=== PATIENT | male | born 1955 | race Caucasian/White ===

== ENCOUNTER → 2016-09-19 | Outpatient (CLI) | payer OTHER ==
[2016-09-19 15:33] LABS: BASOPHILS # (AUTO) 0.09 10*3/UL; EOSINOPHILS # (AUTO) 0.14 10*3/UL; EOSINOPHILS % (AUTO) 1.6 % (0-8); HEMOGLOBIN 16.8 g/dL (14.0-18.0); LYMPHOCYTES # (AUTO) 2.15 10*3/uL; MEAN CORPUSCULAR HEMOGLOBIN 30.4 PG (27-31); MEAN CORPUSCULAR HGB CONC 33.6 g/dL (33-37); MEAN CORPUSCULAR VOLUME 90.6 FL (80-90); MEAN PLATELET VOLUME 10.5 FL (7.4-12.2); MONOCYTES # (AUTO) 0.56 10*3/UL (0.3-0.8); MONOCYTES % (AUTO) 6.3 % (5-15); NEUTROPHILS # (AUTO) 5.89 10*3/UL; NEUTROPHILS % (AUTO) 66.6 % (50-80); RED BLOOD COUNT 5.52 10^6/uL (4.70-6.10)
[2016-09-19 15:44] LABS: BLOOD UREA NITROGEN 13 mg/dL (7-22); BUN/CREATININE RATIO 14.44 (6-20); CALCIUM 9.2 mg/dL (8.7-10.7); EST GLOMERULAR FILTRATION > 60 (>60 ml/min/1.73m(2)); SERUM ALBUMIN 4.1 g/dL (3.5-4.8)
[2016-09-19 15:46] LABS: PLATELET MORPHOLOGY COMMENT NORMAL MORPHOLOGY (NORM); RBC MORPHOLOGY COMMENT NORMAL MORPHOLOGY (NORM); WBC MORPHOLOGY COMMENT NORMAL MORPHOLOGY (NORM)
[2016-09-19 15:47] LABS: BILIRUBIN,URINE NEGATIVE (NEG); GLUCOSE, URINE (UA) 100 mg/dL (NEG); NITRATE,URINE POSITIVE (NEG); OCCULT BLOOD,URINE NEGATIVE (NEG); PROTEIN,URINE 30 mg/dl (NEG)
[2016-09-19 16:11] LABS: CLARITY,URINE CLEAR (CLEAR)
[2016-09-19 16:12] LABS: BACTERIA,URINE RARE; COLOR,URINE ORANGE; RBC,URINE 0-1 /hpf; URINE SAMPLE TYPE VOID; WBC,URINE 0-1
== END ==
LOC: MOB LAB 14:33
PROVIDERS: ATTEND Family Medicine
DX: Z01.812 Encounter for preprocedural laboratory examination (principal)
CPT/HCPCS: 36415; 80053; 81001; 85025; 86850; 86900; 86901; 87088; 87641

== ENCOUNTER → 2016-09-28 | Outpatient (CLI) | payer SELFPAY ==
[2016-09-28 13:38] LABS: BILIRUBIN,URINE NEGATIVE (NEG); COLOR,URINE YELLOW; GLUCOSE, URINE (UA) NEGATIVE (NEG); NITRATE,URINE NEGATIVE (NEG); PROTEIN,URINE NEGATIVE (NEG); UROBILINOGEN,URINE 0.2 EU/dL (0.2)
[2016-09-28 13:44] LABS: CLARITY,URINE CLEAR (CLEAR); OCCULT BLOOD,URINE TRACE (NEG)
[2016-09-28 13:47] LABS: URINE SAMPLE TYPE VOIDED SPECIMEN; WBC,URINE 0
== END ==
LOC: MOB LAB 09:47
PROVIDERS: ATTEND Orthopaedic Surgery
DX: Z01.812 Encounter for preprocedural laboratory examination (principal); M25.552 Pain in left hip
CPT/HCPCS: 81001; 81003

== ENCOUNTER 2016-10-01 12:38 | Emergency (ER) | payer SELFPAY ==
[2016-10-01 12:52] VITALS: RESP 18; TEMP 97.4
[2016-10-01] MEDS ORDERED: Sodium Chloride 0.9% 1,000 ML PRIMARY IV ONE (12:55)
--- NOTE | 2016-10-01 12:59 | PDOC ---
Male Genitourinary Problem HPI - General Chief Complaint: Genitourinary Complaint Stated Complaint: R FLANK PAIN/DYSURIA/HEMATURIA X3 DAYS Date Seen by Provider: 10/01/16 Time Seen by Provider: 12:54 Source: POSITIVE: Patient Exam Limitations: POSITIVE: No limitations Nurse's Notes Reviewed & Considered: Yes - History of Present Illness Initial Comments: Patient comes in today passing blood clots in his urine. Patient comes in today with complaints of hematuria this been escalating over the last 3 days. He had a similar episode one year ago, was treated with antibiotics and had no return of symptoms until this weekend. He denies any headache, chest pain, shortness of breath, nausea vomiting or diarrhea, abdominal pain, no rashes. He does have right-sided CVA pain. Body Location Affected: REPORTS: Abdomen Timing: REPORTS: Abrupt Duration: >24 hours Severity: Severe Quality: REPORTS: Burning Associated Symptoms: REPORTS: Problems Urinating, Burning, Blood in Urine, Flank Pain (Right-sided flank pain) Similar Symptoms Previously: Yes Recent Care Received: REPORTS: Denies Any Prior Injuries Related to Current Complaint?: No - Patient Home Medications Home Medications: Home Medications Ibuprofen [Advil] 200 mg PO PRN PRN 03/04/12 Pumpkin Seed Extract/Soy Germ [Azo Bladder Control Capsule] 1 tab PO PRN PRN - Patient Allergies Allergies/Adverse Reactions: Allergies Allergy/AdvReac Type Severity Reaction Status Date / Time No Known Allergies Allergy Verified 10/01/16 12:43 Past Medical History - heen HEENT History: Dentures/Partials Cardiovascular History: Denies History Respiratory History: Denies History Gastrointestinal History: Other (please comment) Additional Gastrointestinal History: OCCASIONAL HEARTBURN, BLEEDING ULCER Genitourinary History: Denies History Endocrine History: Denies History Musculoskeletal History: Arthritis Prosthesis or Implant: Yes (R LEG) Neurological History: Denies History Blood Disorders: Denies History Psychiatric History: Denies History Male Reproductive History: Denies History Cancer History: Denies History In Past Year Been Physically Harmed or Verbally Threatened: No History of MDRO: No Tobacco Use: Current Every Day Smoker Alcohol Use: None Substance Use Type: None Previous Surgical History: Yes Type / Date of Surgery: MULTIPLE KNEE REPAIR, MULTIPLE HIP OPERATIONS, R WRIST Anesthesia Reactions: No Malignant Hyperthermia: No Significant Family History: Cancer, Diabetes ROS - Limitations ROS Limitations: No Limitations Constitution: REPORTS: Diaphoresis Cardiovascular: REPORTS: Denies Cardiac Symptoms Respiratory: REPORTS: Denies Resp Symptoms Neurological: REPORTS: Denies Neuro Symptoms Gastrointestinal: REPORTS: Denies GI Symptoms Endocrine: REPORTS: Denies Symptoms Musculoskeletal: REPORTS: Back Pain Genitourinary: REPORTS: Dysuria, Hematuria Eyes: REPORTS: Denies Symptoms ENT: REPORTS: Denies Symptoms Skin: REPORTS: Denies Skin Symptoms Lympathic: REPORTS: Denies Lympathic Symptoms Immunologic: POSITIVE: Denies Symptoms Psychiatric: POSITIVE: Denies Psych Symptoms Male Genitourinary Exam - General Appearance General Appearance: POSITIVE: Alert, Cooperative, No Acute Distress, No Evidence of Trauma - Abdomen Abdomen: Soft: (All Quadrants), Normal Bowel Sounds: (All Quadrants), Denies Tenderness: (All Quadrants) - HEENT HEENT: POSITIVE: Head Inspection Nml, Eyes Inspection Nml, Ears Inspection Nml, Nose Inspection Nml, PERRL, EOMI - Neck Neck: POSITIVE: Normal Inspection, No Apparent Injury - Respiratory Respiratory: POSITIVE: No Respiratory Distress, Breath Sounds Normal, Chest Non- Tender - Cardiovascular Cardiovascular: POSITIVE: Regular Rate and Rhythm, Heart Sounds Normal - Back Back: POSITIVE: CVA Tenderness (R) - Extremities Extremity: Non-Tender: (All Extremities), Normal ROM: (All Extremities), Normal Inspection: (All Extremities), Pelvis Stable: (All Extremities) - Neurological / Psychological Neurological: POSITIVE: Affect Apporpriate, Oriented X3, Motor Normal, Sensation Normal - Skin Skin: POSITIVE: Intact, Normal For Race, Warm, Dry, No Rash Male Genitourinary Progress - Results Reviewed by me Xrays/CTs/US Reviewed by me: Yes Discussed with Radiologist: Yes Lab Results Reviewed: Yes Lab Results: Laboratory Results 10/01/16 Range/Units 12:35 WBC 11.77 H (4.8-10.8) 10^3/uL RBC 5.52 (4.70-6.10) 10^6/uL Hgb 16.9 (14.0-18.0) g/dL Hct 49.6 (42.0-52.0) % MCV 89.9 (80-90) FL MCH 30.6 (27-31) PG MCHC 34.1 (33-37) g/dL RDW Std Deviation 46.2 (39-50) fL RDW Coeff of Kayla 14.1 (11.5-14.5) % Plt Count 250 (140-350) 10*3/uL MPV 10.4 (7.4-12.2) FL Immature Gran % (Auto) 0.1 (0-5) % Neut % (Auto) 74.9 (50-80) % Lymph % (Auto) 17.4 (10-50) % [place] % (Auto) 6.3 (5-15) % Eos % (Auto) 0.3 (0-8) % Baso % (Auto) 1.0 (0-1) % Immature Gran # (Auto) 0.01 10*3/UL Neut # (Auto) 8.81 10*3/UL Lymph # (Auto) 2.05 10*3/uL [place] # (Auto) 0.74 (0.3-0.8) 10*3/UL Eos # (Auto) 0.04 10*3/UL Baso # (Auto) 0.12 10*3/UL WBC Morphology Comment Normal morphology (NORM) Plt Morphology Comment Normal morphology (NORM) RBC Morph Comment Normal morphology (NORM) PT 10.4 (9.7-11.4) secs INR 1.01 (0.00-5.90) N/A Sodium 142 (135-145) meq/L Potassium 3.7 L (3.8-5.2) meq/L Chloride 106 (98-112) meq/L Carbon Dioxide 25 (23-33) meq/L Anion Gap 11 (5-20) BUN 16 (7-22) mg/dL Creatinine 1.0 (0.70-1.50) mg/dL Estimated GFR > 60 (>60 ml/min/1.73m(2)) BUN/Creatinine Ratio 16.00 (6-20) Glucose 101 (78-110) mg/dL Calculated Osmolality 294.0 H (267-292) mOsm/kg Calcium 9.3 (8.7-10.7) mg/dL Magnesium 1.9 (1.6-2.4) mg/dL Total Bilirubin 0.9 (0.3-1.2) mg/dL AST 28 (21-57) IU/L ALT 38 (21-72) IU/L Alkaline Phosphatase 110 (38-126) IU/L C-Reactive Protein 0.7 (0.0-0.9) mg/dL Total Protein 7.7 (6.1-8.0) g/dL Albumin 4.3 (3.5-4.8) g/dL Globulin 3.3 (2.50-4.10) g/dL Albumin/Globulin Ratio 1.30 (1.3-2.0) mg/g Urine RBC 15-24 (NONE) /hpf Urine WBC 1-3 (NONE) Ur Squamous Epith Cells Few (NONE) Ur Renal Epithelial Cell None (NONE) Urine Crystals Many Urine Bacteria Rare (NONE) Urine Casts None (NONE) Urine Mucus None (NONE) Urine Trichomonas None (NONE) Urine Yeast None (NONE) - Patient's Progress Pain Medication Addressed: POSITIVE: Patient Refused Re-Examine Time:: 14:48 Status: POSITIVE: Improved MDM / ED Course: Patient was evaluated, an IV started, blood drawn and sent to the lab for studies, radiographic examinations were obtained. Patient declined pain medication stating he did not hurt. Findings: CBC shows white count of 11.5 hemoglobin and hematocrit and platelets are normal. Comprehensive metabolic panel is unremarkable. Urine shows large amount of crystals present rare bacteria and blood. CT scan of his abdomen and pelvis shows a 2 x 1.7 cm dense region in the left inferior urinary bladder possibly representing a soft tissue mass versus blood clot in the urinary bladder. Assessment: Hematuria with probable urinary bladder cancer. Plan: I discussed the patient with Dr. Doroteo Jones the on-call urologist in [facility]. Dr. Jones will see this patient in follow up Sunday. He is to return to the emergency room if he has increased difficulty voiding, fevers, or other concerns. - Consult Consult (If Yes, Name of Consulting MD & Time Called): Yes (Dr. Doroteo Jones [id number]) Consulting MD will see pt:: POSITIVE: In Office Counseled: POSITIVE: Patient, RE: Lab Results, RE: Radiology Results, RE: DX, RE : Need for F/U Patient Care Time - Estimated PCT Patient Care Time (In Minutes): 30 Vital Signs - Recent Vital Signs Vital Signs: Vital Signs (Last 8 hours) Temp Pulse Resp BP Pulse Ox 10/01/16 12:39 97.4 F 118 H 18 143/87 93 - VS Reviewed Vital Signs Reviewed: Yes Discharge Clinical Impression: Hematuria, Mass of urinary bladder Discharge Disposition: Discharged to Home Condition: Stable Patient Instructions Given at Discharge: Hematuria (ED) Follow Up With: Doroteo Bartholomew [Other] - Call for an Appointment (Call Sunday10/02/2016)
[2016-10-01 13:09] LABS: BLOOD UREA NITROGEN 16 mg/dL (7-22); C-REACTIVE PROTEIN 0.7 mg/dL (0.0-0.9); CALCIUM 9.3 mg/dL (8.7-10.7); EST GLOMERULAR FILTRATION > 60 (>60 ml/min/1.73m(2)); MAGNESIUM 1.9 mg/dL (1.6-2.4); SERUM ALBUMIN 4.3 g/dL (3.5-4.8)
[2016-10-01 13:10] LABS: EOSINOPHILS % (AUTO) 0.3 % (0-8); HEMATOCRIT 49.6 % (42.0-52.0); HEMOGLOBIN 16.9 g/dL (14.0-18.0); MEAN CORPUSCULAR HEMOGLOBIN 30.6 PG (27-31); MEAN CORPUSCULAR HGB CONC 34.1 g/dL (33-37); MEAN CORPUSCULAR VOLUME 89.9 FL (80-90); MEAN PLATELET VOLUME 10.4 FL (7.4-12.2); MONOCYTES % (AUTO) 6.3 % (5-15); NEUTROPHILS % (AUTO) 74.9 % (50-80); RED BLOOD COUNT 5.52 10^6/uL (4.70-6.10)
[2016-10-01 13:11] LABS: BASOPHILS # (AUTO) 0.12 10*3/UL; EOSINOPHILS # (AUTO) 0.04 10*3/UL; LYMPHOCYTES # (AUTO) 2.05 10*3/uL; MONOCYTES # (AUTO) 0.74 10*3/UL (0.3-0.8); NEUTROPHILS # (AUTO) 8.81 10*3/UL; PLATELET MORPHOLOGY COMMENT NORMAL MORPHOLOGY (NORM); RBC MORPHOLOGY COMMENT NORMAL MORPHOLOGY (NORM); SQUAMOUS EPITHELIAL CELL,UR FEW; WBC MORPHOLOGY COMMENT NORMAL MORPHOLOGY (NORM)
[2016-10-01 13:12] LABS: BACTERIA,URINE RARE; URINE CRYSTALS MANY
--- NOTE | 2016-10-01 14:28 | DI ---
HISTORY: Hematuria. No history of stones. COMPARISON: None. TECHNIQUE: Helical CT scanning was performed from the lung bases, through the abdomen and pelvis, to the level of lesser trochanters following the administration of IV contrast material. MPR. Overall im age quality satisfactory. FINDINGS: LUNG BASES/LOWER HEART: Basilar atelectasis, no focal basilar consolidation, pleural effusion or pneu mothorax. No pericardial effusion. Atherosclerotic calcifications of the aorta and coronary arteries. ABDOMEN/PELVIS: LIVER: Homogeneous parenchymal attenuation. GALLBLADDER: Distended with bile, no calcified gallstones noted. No adjacent inflammatory change. PANCREAS: No adjacent inflammatory change. ADRENAL GLANDS: Maintain their triangular shape. SPLEEN: Normal enhancement pattern. KIDNEYS: Anatomic location. No hydronephrosis. Punctate left calyceal calcification. GREAT VESSELS: Enhance unremarkably, noting atherosclerotic vascular changes of the aorta and its bra nch vessels. FREE INTRAPERITONEAL FLUID: No large volume. VARIABLY DISTENDED BOWEL LOOPS: Non-obstructive bowel gas pattern. Appendix is normal. BLADDER: 2.0 x 1.7 cm dense region (approximate measurement 2.0 x 1.7 cm) within the left inferior ur inary bladder (coronal image 50). Finding may represent soft tissue mass or blood clots in the urina ry bladder. Recommend urology referral and consideration for CT IVP. OSSEOUS STRUCTURES: No acute osseous abnormality. Multilevel thoracic and lumbar degenerative change s. MISCELLANEOUS: Fat containing right inguinal hernia. IMPRESSION: 1. 2.0 x 1.7 cm dense mass like region (approximate measurement 2.0 x 1.7 cm) within the left inferio r urinary bladder (coronal image 50). Finding may represent soft tissue mass or blood clots in the u rinary bladder. Recommend urology referral and consideration for CT IVP to exclude uroepithelial dee plasm. 2. Punctate left renal calcification, no obstructing calculus.
== END 2016-10-01 14:55 | disposition home or self-care (01) ==
LOC: ER 12:38
DX: R31.9 Hematuria, unspecified (principal); N32.89 Other specified disorders of bladder; K40.90 Unilateral inguinal hernia, without obstruction or gangrene, not specified as recurrent; R30.0 Dysuria; R39.89 Other symptoms and signs involving the genitourinary system
CPT/HCPCS: 74177; 80053; 81015; 83735; 85025; 85610; 86140; 87088; 99283

== ENCOUNTER → 2016-10-26 | Outpatient (CLI) | payer OTHER ==
[2016-10-26 12:36] LABS: BASOPHILS # (AUTO) 0.06 10*3/UL; BASOPHILS % (AUTO) 0.7 % (0-1); EOSINOPHILS # (AUTO) 0.05 10*3/UL; EOSINOPHILS % (AUTO) 0.6 % (0-8); HEMATOCRIT 48.2 % (42.0-52.0); HEMOGLOBIN 16.2 g/dL (14.0-18.0); LYMPHOCYTES # (AUTO) 1.93 10*3/uL; MEAN CORPUSCULAR HEMOGLOBIN 30.5 PG (27-31); MEAN CORPUSCULAR HGB CONC 33.6 g/dL (33-37); MEAN CORPUSCULAR VOLUME 90.6 FL (80-90); MEAN PLATELET VOLUME 10.7 FL (7.4-12.2); MONOCYTES # (AUTO) 0.45 10*3/UL (0.3-0.8); MONOCYTES % (AUTO) 5.6 % (5-15); NEUTROPHILS # (AUTO) 5.54 10*3/UL; RED BLOOD COUNT 5.32 10^6/uL (4.70-6.10)
[2016-10-26 12:41] LABS: PLATELET MORPHOLOGY COMMENT NORMAL MORPHOLOGY (NORM); RBC MORPHOLOGY COMMENT NORMAL MORPHOLOGY (NORM); WBC MORPHOLOGY COMMENT NORMAL MORPHOLOGY (NORM)
[2016-10-26 12:43] LABS: BLOOD UREA NITROGEN 19 mg/dL (7-22); BUN/CREATININE RATIO 21.11 (6-20); EST GLOMERULAR FILTRATION > 60 (>60 ml/min/1.73m(2)); SERUM ALBUMIN 4.3 g/dL (3.5-4.8)
[2016-10-26 12:44] LABS: BILIRUBIN,URINE NEGATIVE (NEG); CLARITY,URINE CLEAR (CLEAR); GLUCOSE, URINE (UA) NEGATIVE (NEG); NITRATE,URINE POSITIVE (NEG); OCCULT BLOOD,URINE LARGE (NEG); PROTEIN,URINE TRACE mg/dl (NEG); UROBILINOGEN,URINE 0.2 EU/dL (0.2)
[2016-10-26 12:58] LABS: URINE SAMPLE TYPE VOIDED SPECIMEN
[2016-10-26 12:59] LABS: COLOR,URINE ORANGE; RBC,URINE 15-20 /hpf
== END ==
LOC: MOB LAB 11:24
PROVIDERS: ATTEND Orthopaedic Surgery
DX: Z01.812 Encounter for preprocedural laboratory examination (principal); M25.552 Pain in left hip
CPT/HCPCS: 36415; 80053; 81001; 81003; 85025; 86850; 86900; 86901; 87641

== ENCOUNTER → 2016-11-30 | Outpatient (CLI) | payer OTHER ==
--- NOTE | 2016-11-30 10:43 | DI ---
AP PELVIS and LEFT HIP, 11/30/2016 9:04 AM: Clinical History: Left hip pain. Previous Exam: None at this facility. There is no soft tissue abnormality. The bony structures of the pelvis are normal. 2 views of the lef t hip show the patient to be status post total left hip replacement. The acetabular component is radi olucent and dilute to the acetabular fossa. There is a uniform density surrounding the entire shaft o f the femoral prosthesis except the very tip. This density is slightly higher than the surrounding ca ncellous bone. Typically, with loosening of the prosthesis, the area surrounding the prosthetic compo nent is radiolucent relative to an of higher density than the surrounding cancellous bone. This could be an unusual variant of loosening of the prosthesis but it may also represent some material that wa s intentionally designed to encase the metallic shank to facilitate anchoring to the [place] bone. The prosthetic device articulates normally. Readin. Status post total left hip replacement. The acetabular component is radiolucent and glued to the pelvis. There is a high-density perimeter surrounding the metallic shank in the femur and this may ei ther represent a material that was designed to encase the metal to facilitate healing, or this is an unusual presentation of loosening of the prosthesis. 2. The AP pelvis view is unremarkable.
== END ==
LOC: RAD 08:56
PROVIDERS: ATTEND Physician Assistant Surgical
DX: M25.552 Pain in left hip (principal); Z96.642 Presence of left artificial hip joint
CPT/HCPCS: 73502